=== PATIENT | female | born 1950 | race Caucasian/White ===

== ENCOUNTER 2017-06-22 00:27 | Emergency (ER) | payer MEDICARE, BC ==
[2017-06-22 00:39] VITALS: TEMP 98; O2SAT 98
[2017-06-22] MEDS ORDERED: Morphine 4 MG/ML VIAL IVP STA (01:11)
[2017-06-22 02:18] LABS: BASO # 0.1 K/uL (0.0-0.2); BASO % 1.2 % (0.0-2.0); EOS # 0.5 K/uL (0.0-0.7); EOS % 6.5 % (0.0-4.0); HEMOGLOBIN 12.8 g/dL (12.0-16.0); LYMPH # 2.7 K/uL (1.0-4.3); LYMPH % 32.9 % (20.0-40.0); MEAN CELL VOLUME 91.4 fl (81.0-99.0); MEAN CORPUSCULAR HEMOGLOBIN 30.8 pg (27.0-31.0); MEAN CORPUSCULAR HGB CONC 33.7 g/dL (33.0-37.0); MEAN PLATELET VOLUME 8.7 fl (7.2-11.7); MONO # 0.5 K/uL (0.0-0.8); MONO % 6.6 % (0.0-10.0); NEUT # 4.3 K/uL (1.8-7.0); NEUT % 52.8 % (50.0-75.0); NRBC % 0.1 % (0.0-0.0); RBC 4.16 Mil/uL (3.80-5.20); RED CELL DISTRIBUTION WIDTH 13.7 % (11.5-14.5); WHITE BLOOD COUNT 8.2 K/uL (4.8-10.8)
[2017-06-22 02:18] LABS: SQUAMOUS EPITHIAL 2 /hpf (0-5); URINE BACTERIA RARE (<OCC); URINE BILIRUBIN NEGATIVE (NEGATIVE); URINE BLOOD MODERATE (NEGATIVE); URINE CLARITY SLIGHTY-CLOUDY (Clear); URINE COLOR YELLOW (YELLOW); URINE GLUCOSE (UA) NEG (Normal); URINE LEUKOCYTE ESTERASE MOD Leu/uL (Negative); URINE PROTEIN 30 mg/dL (NEGATIVE); URINE UROBILINOGEN 0.2-1.0 mg/dL (0.2-1.0)
[2017-06-22 02:25] LABS: ALBUMIN 4.1 g/dL (3.5-5.0); ALT/SGPT 46 U/L (9-52); AST/SGOT 44 U/L (14-36); BLOOD UREA NITROGEN 11 mg/dl (7-17); CALCIUM 9.3 mg/dL (8.4-10.2); GFR AFRICAN-AMERICAN > 60; GFR NON-AFRICAN AMERICAN > 60
--- NOTE | 2017-06-22 02:28 | ED PDOC ---
HPI: Back Time Seen by Provider: 06/22/17 00:52 Chief Complaint (Nursing): Back Pain Chief Complaint (Provider): Back Pain History Per: Patient Onset/Duration Of Symptoms: Days (x30) Current Symptoms Are (Timing): Still Present Additional Complaint(s): Lori Nicole is a 66 year old female with a past medical history of hypertension and diabetes, who is presenting to the ER with complaints of left sided back pain, onset 1 month ago. Patient states that the pain sometimes radiated to the middle of her back, and other times will radiate to her left abdomen. She reports that she was initially considered to have a kidney infection, but after 2 different doses of antibiotics, there was no relief of symptoms. Patient states that her outpatient Ultrasound was unremarkable and that she has a follow-up with a urologist in two weeks, but the pain was too severe, which prompted her ED visit. She reports that her urine has a foul smell and is foamy. Patient reports chills, nausea, and no changes with her normal constipation. She denies any dysuria, hematuria, frequency, trauma, fall , injury, or heavy lifting, prior to onset of pain. PMD: [facility] Doctor Past Medical History Reviewed: Historical Data, Nursing Documentation, Vital Signs Vital Signs: Last Vital Signs Temp 98.0 F 06/22/17 00:36 Pulse 77 06/22/17 00:36 Resp 18 06/22/17 00:36 BP 178/94 H 06/22/17 00:36 Pulse Ox 98 06/22/17 00:36 - Medical History PMH: Diabetes, HTN - Surgical History Other surgeries: hysterectomy, ulcer, 2 hernia surgeries, shoulder surgery - Family History Family History: States: No Known Family Hx - Social History Current smoker - smoking cessation education provided: No Alcohol: None - Home Medications Home Medications: Ambulatory Orders Medication Instructions Recorded Nitrofurantoin Macrocrystals 1 cap PO BID #20 cap 06/22/17 [Macrobid] Polyethylene Glycol 3350 [Miralax] 17 gm PO DAILY PRN #1 bottle 06/22/17 metroNIDAZOLE [Flagyl] 500 mg PO TID #30 tab 06/22/17 traMADol [Ultram] 50 mg PO TID #15 tab 06/22/17 - Allergies Allergies/Adverse Reactions: Allergies Allergy/AdvReac Type Severity Reaction Status Date / Time ciprofloxacin [From Cipro] Allergy SHORTNESS Verified 06/22/17 00:36 OF BREATH Review of Systems ROS Statement: Except As Marked, All Systems Reviewed And Found Negative Constitutional: Positive for: Chills. Negative for: Fever, Other (fall, trauma , injury) Gastrointestinal: Positive for: Nausea, Constipation. Negative for: Vomiting, Diarrhea Genitourinary Female: Positive for: Other (foul smelling urine, foamy). Negative for: Dysuria, Frequency Musculoskeletal: Positive for: Back Pain Physical Exam - Reviewed Nursing Documentation Reviewed: Yes Vital Signs Reviewed: Yes - Physical Exam Appears: Positive for: In Acute Distress (mild painful) Gastrointestinal/Abdominal: Positive for: Normal Exam, Soft. Negative for: Tenderness Back: Positive for: Other (left lumbar paraspinal tenderness to palpation of muscles). Negative for: Vertebral Tenderness - Laboratory Results Result Diagrams: 06/22/17 02:10 06/22/17 02:10 - ECG O2 Sat by Pulse Oximetry: 98 (RA) Pulse Ox Interpretation: Normal Medical Decision Making Medical Decision Making: Time: 1:10 Impression: left sided back pain Differentials (including but not limited to):renal colic pyelonephritis, musculoskeletal strain, herniated disc, AAA Plan: --CT Abd/Pelvis --CMP --Drug Screen --ED Urine Dipstick --CBC --Flexeril 10 mg PO --Morphine 2 mg IVP --Urine Culture --Urinalysis CT Abd/Pelvis: FINDINGS: Lung bases: Unremarkable. No mass. No consolidation. ABDOMEN: Liver: Diffuse fatty infiltration Gallbladder and bile ducts: Unremarkable. No calcified stones. No ductal dilation. Pancreas: Unremarkable. No ductal dilation. Spleen: Unremarkable. No splenomegaly. Adrenals: Unremarkable. No mass. Kidneys and ureters: Right renal cyst No obstructing stones. No hydronephrosis. Stomach and bowel: Sigmoid colonic diverticulosis with superimposed mild inflammatory changes in the proximal/midportion No obstruction. Appendix: No findings to suggest acute appendicitis. PELVIS: Bladder: Unremarkable. No stones. Reproductive: Unremarkable as visualized. ABDOMEN and PELVIS: Intraperitoneal space: Unremarkable. No free air. No significant fluid collection. Bones/joints: No acute fracture. No dislocation. Soft tissues: Mild infiltration of the infraumbilical abdominal wall bilaterally presumably related to subcutaneous injections if Vasculature: Unremarkable. No abdominal aortic aneurysm. Lymph nodes: Unremarkable. No enlarged lymph nodes. IMPRESSION: Sigmoid colonic diverticulitis without gross perforation or abscess No CT evidence for obstructive uropathy Diffuse fatty infiltration of the liver Thank you for allowing us to participate in the care of your patient. Dictated and Authenticated by: Fabricio Whitlock MD 06/22/2017 2:32 AM Eastern Time ([place] & [place]) DW Pt findings and plan of care Requests copies of results, which were given directly to patient. Scribe Attestation: Documented by Naida Marcano acting as a scribe for Petra Molina MD. Scribe Attestation: All medical record entries made by the Scribe were at my direction and personally dictated by me. I have reviewed the chart and agree that the record accurately reflects my personal performance of the history, physical exam, medical decision making, and the department course for this patient. I have also personally directed, reviewed, and agree with the discharge instructions and disposition. Disposition - Clinical Impression Clinical Impression: Diverticulitis - Disposition Condition: STABLE Additional Instructions: FOLLOW UP WITH YOUR DOCTOR EARLY THIS WEEK. YOU MAY NEED A REFERRAL FOR GASTROENTEROLOGY FOR FURTHER EVALUATION. Prescriptions: metroNIDAZOLE [Flagyl] 500 mg PO TID #30 tab Nitrofurantoin Macrocrystals [Macrobid] 1 cap PO BID #20 cap Polyethylene Glycol 3350 [Miralax] 17 gm PO DAILY PRN #1 bottle PRN Reason: Constipation traMADol [Ultram] 50 mg PO TID #15 tab Instructions: Diverticulitis (DC), Constipation in Adults Forms: [employer] (Macedonian)
[2017-06-22 03:56] VITALS: BP 152/88; PULSE 72; RESP 16
[2017-06-22 05:55] LABS: BARBITURATES, UR NEGATIVE (NEGATIVE); BENZODIAZEPINES, UR NEGATIVE (NEGATIVE); OPIATES, UR NEGATIVE (NEGATIVE); PHENCYCLIDINE, UR NEGATIVE (NEGATIVE)
--- NOTE | 2017-06-22 10:37 | CT ---
PROCEDURE: CT Abdomen and Pelvis without intravenous contrast HISTORY: LEFT flank pain COMPARISON: None. TECHNIQUE: Contiguous images were obtained from the domes of the diaphragms to the upper thighs without the administration of intravenous contrast. Oral contrast was not administered. Radiation dose: Total exam DLP = 715.2 mGy-cm. This CT exam was performed using one or more of the following dose reduction techniques: Automated exposure control, adjustment of the mA and/or kV according to patient size, and/or use of iterative reconstruction technique. FINDINGS: LOWER THORAX: Bibasilar atelectasis. Heart size normal. Coronary arterial and valvular calcification. LIVER: Hepatic steatosis with fatty sparing adjacent to gallbladder fossa. No gross lesion or ductal dilatation. GALLBLADDER AND BILE DUCTS: Unremarkable. PANCREAS: Unremarkable. No gross lesion or ductal dilatation. SPLEEN: Unremarkable. ADRENALS: Unremarkable. No mass. KIDNEYS AND URETERS: Right mid/ upper pole 2.5 cm cyst. No hydronephrosis. No solid mass. VASCULATURE: Unremarkable. No aortic aneurysm. BOWEL: Small hiatal hernia. Sigmoid diverticulosis with surrounding mild inflammatory change. APPENDIX: Not definitively visualized, but no secondary signs to suggest acute appendicitis. PERITONEUM: Unremarkable. No free fluid. No free air. LYMPH NODES: Unremarkable. No enlarged lymph nodes. BLADDER: Unremarkable. REPRODUCTIVE: Unremarkable. BONES: No acute fracture. OTHER FINDINGS: Nonspecific subcutaneous hazy change in the bilateral lower quadrants. IMPRESSION: Sigmoid diverticulitis without evidence of perforation or abscess. No urolithiasis or evidence of recently passed genitourinary calculus. Additional findings as above
== END 2017-06-22 03:45 | disposition home or self-care (01) ==
LOC: H.ER 00:27
DX: K57.32 Diverticulitis of large intestine without perforation or abscess without bleeding (principal); E11.9 Type 2 diabetes mellitus without complications; I10 Essential (primary) hypertension; K59.00 Constipation, unspecified; Z90.710 Acquired absence of both cervix and uterus
CPT/HCPCS: 74176; 80053; 81003; 82948; 85025; 87086; 96374; 99283; G0480; J2270